=== PATIENT | male | born 1985 | race Two or more races ===

== ENCOUNTER 2016-07-08 12:39 | Inpatient (IN) | payer MEDICAID ==
[~2016-07-08] VITALS: Ht 190.5 cm; Wt 91.4 kg
[2016-07-08 19:09] LABS: CALCIUM 8.7 mg/dL (8.5-10.1); CARBON DIOXIDE 29.5 mmol/L (21-32); CHLORIDE SERUM 101 mmol/L (98-107); GFR1 > 60 mL/min; GLUCOSE SERUM 96 mg/dL (74-106); PLATELET COUNT 246 x10^3mcL (130-400); POTASSIUM SERUM 3.6 mmol/L (3.5-5.1); RED CELL DISTRIBUTION WIDTH 12.7 % (11.5-14.5); SODIUM SERUM 142 mmol/L (136-145)
[2016-07-08 19:13] LABS: ALKALINE PHOSPHATASE 50 U/L (46-116); ALT/SGPT 18 U/L (16-63); AST/SGOT 16 U/L (15-37); BILIRUBIN TOTAL 0.5 mg/dL (0.20-1.00); LIPASE 129 IU/L (73-393); TOTAL PROTEIN, SERUM 7.4 g/dL (6.4-8.2)
[2016-07-08 19:40] LABS: ALBUMIN 3.3 g/dL (3.4-5.0)
[2016-07-08 19:56] LABS: BAND NEUTROPHIL 0 % (0-10); BASOPHIL 0 % (0-2); MONOCYTE 6 % (0-7); SEGMENTED NEUTROPHILS 87 % (37-75)
[2016-07-08 20:56] LABS: CHOLESTEROL/HDL RATIO 2.5
[2016-07-08 21:00] LABS: T3 TOTAL 0.84 ng/mL
[2016-07-08 21:11] VITALS: BP 106/61
[2016-07-08 21:13] LABS: FREE T4 1.15 ng/dL (0.76-1.46); FREE THYROXINE INDEX 2.7 ug/dL (1.4-4.5)
[2016-07-08 21:21] VITALS: Ht 190.5 cm; Wt 91.4 kg
[2016-07-08 22:59] VITALS: BP 109/63
[2016-07-09] VITALS (7 sets, daily range): BP systolic 93–109; BP diastolic 44–65
[2016-07-09 00:37] LABS: microscopic required? NO
[2016-07-09 00:49] LABS: urine erythrocyte NEGATIVE (NEGATIVE)
[2016-07-09 01:06] LABS: AMPHETAMINE QUAL UR NONE DETECTED (NEG <=1000)
[2016-07-09 05:47] LABS: BASOPHIL % 0.2 % (0-2); PLATELET COUNT 231 x10^3mcL (130-400); RED CELL DISTRIBUTION WIDTH 12.7 % (11.5-14.5)
[2016-07-09 05:52] LABS: CALCIUM 8.3 mg/dL (8.5-10.1); CARBON DIOXIDE 31.5 mmol/L (21-32); CHLORIDE SERUM 100 mmol/L (98-107); GFR1 > 60 mL/min; GLUCOSE SERUM 92 mg/dL (74-106); MAGNESIUM 1.7 mg/dL (1.8-2.4); PHOSPHOROUS 4.1 mg/dL (2.5-4.9); POTASSIUM SERUM 3.6 mmol/L (3.5-5.1); SODIUM SERUM 138 mmol/L (136-145)
[2016-07-10 05:55] LABS: BASOPHIL % 0.3 % (0-2); PLATELET COUNT 273 x10^3mcL (130-400); RED CELL DISTRIBUTION WIDTH 12.5 % (11.5-14.5)
[2016-07-10 06:07] LABS: CALCIUM 8.3 mg/dL (8.5-10.1); CARBON DIOXIDE 31.8 mmol/L (21-32); GFR1 > 60 mL/min; GLUCOSE SERUM 122 mg/dL (74-106); PHOSPHOROUS 3.6 mg/dL (2.5-4.9)
[2016-07-10 06:56] LABS: ALBUMIN 2.8 g/dL (3.4-5.0); CHLORIDE SERUM 102 mmol/L (98-107); POTASSIUM SERUM 4.1 mmol/L (3.5-5.1); SODIUM SERUM 140 mmol/L (136-145)
[2016-07-10 07:35] VITALS: BP 101/49
[2016-07-10] MEDS ORDERED: COL100 PO (10:28)
[2016-07-10] MEDS ORDERED: NOR10T PO (10:28)
[2016-07-10] MEDS ORDERED: LAC PO (10:29)
[2016-07-10] MEDS ORDERED: DOXYCYCLINE MO100 MG PO (10:31)
[2016-07-10] MEDS ORDERED: MOT800 PO (10:43)
[2016-07-10 13:12] VITALS: BP 101/49
== END 2016-07-10 13:31 | disposition home or self-care (01) | DRG 223 ==
LOC: ED 12:39 → MU 20:09 → DU 20:09 → MU 07-09 08:30
PROVIDERS: Emergency Medicine; Family Medicine; Surgery; ADMIT Family Medicine
PROC: 7W08X0Z Osteopathic Treatment of Rib Cage using Articulatory-Raising Forces (ICD-10-PCS; 2016-07-09)
PROC: 7W0 Osteopathic, Anatomical Regions, Treatment (ICD-10-PCS; 2016-07-09)
PROC: 7W02X4Z Osteopathic Treatment of Thoracic Region using Indirect Forces (ICD-10-PCS; 2016-07-09)
PROC: 7W02X3Z Osteopathic Treatment of Thoracic Region using High Velocity-Low Amplitude Forces (ICD-10-PCS; 2016-07-09)
PROC: 0D9P0ZZ Drainage of Rectum, Open Approach (ICD-10-PCS; principal; 2016-07-09 11:30)
DX: K61.1 Rectal abscess (principal); E43 Unspecified severe protein-calorie malnutrition; K56.7 Ileus, unspecified; K50.90 Crohn's disease, unspecified, without complications; D17.24 Benign lipomatous neoplasm of skin and subcutaneous tissue of left leg; E83.42 Hypomagnesemia; M99.01 Segmental and somatic dysfunction of cervical region; M99.08 Segmental and somatic dysfunction of rib cage; M99.02 Segmental and somatic dysfunction of thoracic region; Z68.25 Body mass index [BMI] 25.0-25.9, adult
CPT/HCPCS: 80307; 83880; 84439; 94150; J1170; J1885; J2001; J2175; J2250; J2270; J2405; J2543; J3010; J3490; J7030; Q0092; Q9967